=== PATIENT | female | born 1995 | race Two or more races ===

== ENCOUNTER 2020-08-18 13:07 | Emergency (ER) | payer BC ==
[~2020-08-18] VITALS: Ht 157.5 cm; Wt 63.0 kg
[2020-08-18 13:42] VITALS: BP 148/80
--- NOTE | 2020-08-18 14:09 | RAD ---
Left elbow 3 views, left forearm 2 views. HISTORY: Pain after a fall Left elbow 3 views were taken the left elbow. There is a contraceptive device in the soft tissues of the forearm medially. There is no fracture at the elbow. Fat pads at the elbow are not displaced. Left forearm 2 views were taken of the left forearm. There is not evidence of an acute fracture or osseous abnorma lity. IMPRESSION: 1. No fracture noted at the left elbow. 2. No fracture noted in the left forearm Electronically signed by: Wang Lisa MD (08/18/2020 2:07 PM) [facility]
[2020-08-18] MEDS ORDERED: NAPR-514 PO (14:26)
--- NOTE | 2020-08-18 14:26 | PHYS DOC ---
Past Medical History Past Medical History: No Pertinent History Past Surgical History: No Surgical History Smoking Status: Never Smoker Alcohol Use: None General Adult EDM: Chief Complaint: UPPER EXTREMITY PAIN HPI: HPI: Patient is a 24 year old female no significant medical history presenting to the ED today complaining of a sharp10 out of 10 left proximal forearm pain that began at 9 AM after she fell down 7 steps. Patient denies any loss of consciousness. Denies any head, neck mid or low back pain. Denies any hematuria. She states she hit her left forearm on the staircase. States the pain is worse on range of motion. Denies anything specifically relieving the pain. Review of Systems: Review of Systems: Constitutional: Denies fever or chills. [] : Denies dysuria. [] Musculoskeletal: Reports left forearm pain Integument: Denies rash. [] Neurologic: Denies headache, focal weakness or sensory changes. [] Psychiatric: Denies depression or anxiety. [] Heart Score: Risk Factors: Risk Factors: DM, Current or recent (<one month) smoker, HTN, HLP, family history of CAD, obesity. Risk Scores: Score 0 - 3: 2.5% MACE over next 6 weeks - Discharge Home Score 4 - 6: 20.3% MACE over next 6 weeks - Admit for Clinical Observation Score 7 - 10: 72.7% MACE over next 6 weeks - Early Invasive Strategies Physical Exam: PE: Constitutional: Well developed, well nourished, no acute distress, non-toxic appearance. [] Skin: Warm, dry, no erythema, no rash. [] Back: No tenderness, no CVA tenderness. [] Extremities: Left lateral proximal forearm with mild soft tissue swelling and bruising. Full range of motion to the left forearm including plantarflexion and dorsiflexion. +2 left radial pulse. Adequate radial, medial, ulnar sensation to the left upper extremity. Cap refill less than 2 seconds in left fingers. Neurologic: Alert and oriented X 3, normal motor function, normal sensory function, no focal deficits noted. [] Psychologic: Affect normal, judgement normal, mood normal. [] Current Patient Data: Vital Signs: Vital Signs Date Time Temp Pulse Resp B/P (MAP) Pulse Ox O2 Delivery O2 Flow Rate FiO2 08/18/20 13:42 98.8 61 16 148/80 (102) 100 98.8 EKG: EKG: [] Radiology/Procedures: Radiology/Procedures: []PROCEDURE: FOREARM LEFT Left elbow 3 views, left forearm 2 views. HISTORY: Pain after a fall Left elbow 3 views were taken the left elbow. There is a contraceptive device in the soft tissues of the forearm medially. There is no fracture at the elbow. Fat pads at the elbow are not displaced. Left forearm 2 views were taken of the left forearm. There is not evidence of an acute fra cture or osseous abnormality. IMPRESSION: 1. No fracture noted at the left elbow. 2. No fracture noted in the left forearm Electronically signed by: Wang Shirley MD (08/18/2020 2:07 PM) [facility] DICTATED and SIGNED BY: WANG SHIRLEY MD DATE: 08/18/20 [id number] 0 Course & Med Decision Making: Course & Med Decision Making Pertinent Labs and Imaging studies reviewed. (See chart for details) This is a 24-year-old female patient presented to the ED today with left proximal forearm pain that began after she fell down 7 steps. Left forearm and left elbow x-rays are negative for any acute findings. Robert bandage applied to the left forearm by me, neurovascular exam is intact. Ice elevation encouraged. Naproxen for pain. Dragon Disclaimer: Dragon Disclaimer: This electronic medical record was generated, in whole or in part, using a voice recognition dictation system. Departure Departure Impression: Primary Impression: Fall down steps Qualified Codes: W10.8XXA - Fall (on) (from) other stairs and steps, initial encounter Additional Impression: Contusion of left forearm Qualified Codes: S50.12XA - Contusion of left forearm, initial encounter Disposition: 01 DC HOME SELF CARE/HOMELESS Condition: STABLE Referrals: UNKNOWN PCP NAME (PCP) KAYDEN KAPLAN II, MD follow up in 1-2 weeks Patient Instructions: Contusion, [id number], Fall Prevention and Home Safety Additional Instructions: You were evaluated in the emergency room for left forearm pain. Your left forearm and left elbow x-rays are negative for any acute findings. You likely have a contusion to the left forearm. Try to ice and elevate the extremity. Wear the Robert bandage as tolerated. Follow-up with the provided orthopedic doctor or your own doctor in 1 to 2 weeks as needed Scripts Naproxen (NAPROXEN) 500 Mg Tablet 1 TAB PO BID PRN for PAIN, #30 TAB 0 Refills Prov: KERA YI APRN 08/18/20 KERA YI APRN Aug 18, 2020 14:26
== END 2020-08-18 14:30 | disposition home or self-care (01) ==
LOC: ER 13:07
DX: S50.12XA Contusion of left forearm, initial encounter (principal); W10.8XXA Fall (on) (from) other stairs and steps, initial encounter; Y93.89 Activity, other specified; Y92.89 Other specified places as the place of occurrence of the external cause; Y99.9 Unspecified external cause status
CPT/HCPCS: 73080; 73090; 99284

== ENCOUNTER 2021-03-22 13:48 | Emergency (ER) | payer BC ==
[~2021-03-22] VITALS: Ht 154.9 cm; Wt 75.1 kg
[~2021-03-22 13:48] MED LIST: NAPR-514 PO
[2021-03-22] MEDS ORDERED: TETRACAINE 0.5% OPHTH SOLUTION 4ML BOTTLE. OD ONE (14:30)
[2021-03-22] MEDS ORDERED: FLUORESCEIN OPHTH TEST STRIP. OD ONE (14:30)
--- NOTE | 2021-03-22 14:52 | PHYS DOC ---
Past Medical History Past Medical History: No Pertinent History Past Surgical History: No Surgical History Smoking Status: Never Smoker Alcohol Use: None General Adult EDM: Chief Complaint: EYE PROBLEMS HPI: HPI: Patient is a 25 year old female without pertinent past medical history who presents with a red and painful eye. States that she was playing with her children when she was hit in the eye on accident last night about 7 PM. Was slightly painful when she went to bed. When she woke up today she had red/bloody conjunctivae so came in to the emergency department. No vision loss. Review of Systems: Review of Systems: Constitutional: Denies fever or chills. [] Eyes: Right eye pain and redness. [] HENT: Denies nasal congestion or sore throat. [] Respiratory: Denies cough or shortness of breath. [] Cardiovascular: Denies chest pain or edema. [] GI: Denies abdominal pain, nausea, vomiting, bloody stools or diarrhea. [] : Denies dysuria. [] Musculoskeletal: Denies back pain or joint pain. [] Integument: Denies rash. [] Neurologic: Denies headache, focal weakness or sensory changes. [] Endocrine: Denies polyuria or polydipsia. [] Lymphatic: Denies swollen glands. [] Psychiatric: Denies depression or anxiety. [] Heart Score: C/O Chest Pain: N/A Risk Factors: Risk Factors: DM, Current or recent (<one month) smoker, HTN, HLP, family hi story of CAD, obesity. Risk Scores: Score 0 - 3: 2.5% MACE over next 6 weeks - Discharge Home Score 4 - 6: 20.3% MACE over next 6 weeks - Admit for Clinical Observation Score 7 - 10: 72.7% MACE over next 6 weeks - Early Invasive Strategies Current Medications: Current Medications Medications (Trade) Dose Ordered Sig/Juliana Start Time Stop Time Status Last Admin Dose Admin Fluorescein Sodium (Ful-Rosa) 1 strip 1X ONCE 03/22/21 14:30 03/22/21 14:31 DC Tetracaine HCl (Tetracaine) 1 drop 1X ONCE 03/22/21 14:30 03/22/21 14:31 DC Allergies: Allergies: Allergies Coded Allergies Type Severity Reaction Last Updated Verified No Known Drug Allergies 03/22/21 No Physical Exam: PE: Constitutional: Well developed, well nourished, no acute distress, non-toxic appearance. [] HENT: Normocephalic, atraumatic, bilateral external ears normal, oropharynx moist, no oral exudates, nose normal. [] Eyes: Vision grossly intact. Pupils equal, reactive to light, EOMs intact in all directions. No evidence of hyphema. There is subconjunctival hemorrhage on the lateral right eye. Fluorescein exam negative. No evidence of Manish sign/open globe. No evidence of facial bruising or instability [] Neck: Normal range of motion, no tenderness, supple, no stridor. [] Cardiovascular:Heart rate regular rhythm, no murmur [] Lungs & Thorax: Normal respiratory effort. Normal chest excursion. Abdomen: Bowel sounds normal, soft, no tenderness, no masses, no pulsatile masses. [] Skin: Warm, dry, no erythema, no rash. [] Back: No tenderness, no CVA tenderness. [] Extremities: No tenderness, no cyanosis, no clubbing, ROM intact, no edema. [] Neurologic: Alert and oriented X 3, normal motor function, normal sensory function, no focal deficits noted. [] Psychologic: Affect normal, judgement normal, mood normal. [] Current Patient Data: Vital Signs: Vital Signs Date Time Temp Pulse Resp B/P (MAP) Pulse Ox O2 Delivery O2 Flow Rate FiO2 03/22/21 14:15 98.9 82 16 126/91 (103) 96 Room Air 98.9 EKG: EKG: [] Radiology/Procedures: Radiology/Procedures: [] Course & Med Decision Making: Course & Med Decision Making Pertinent Labs and Imaging studies reviewed. (See chart for details) Patient is 25-year-old female who presents with a subconjunctival hemorrhage and hit in the eye by her child last night. Vision intact. No evidence of hyphema or traumatic iritis. No evidence of facial trauma, low concern for retrobulbar hematoma. No evidence of open globe. No evidence of corneal abrasion. This looks to be a simple Subconjunctival hemorrhage that can be managed expectantly. [id number] Naveed Disclaimer: Naveed Disclaimer: This electronic medical record was generated, in whole or in part, using a voice recognition dictation system. Departure Departure Impression: Primary Impression: Subconjunctival hemorrhage of right eye Disposition: HOME / SELF CARE / HOMELESS Condition: STABLE Referrals: UNKNOWN PCP NAME (PCP) Patient Instructions: Subconjunctival Hemorrhage RAJAT RIVERA MD Mar 22, 2021 14:52
[2021-03-22 15:42] VITALS: BP 137/82
== END 2021-03-22 15:42 | disposition home or self-care (01) ==
LOC: ER 13:48
DX: H11.31 Conjunctival hemorrhage, right eye (principal)
CPT/HCPCS: 99283

== ENCOUNTER 2021-11-26 23:54 | Emergency (ER) | payer BC ==
[~2021-11-26] VITALS: Ht 160 cm; Wt 65.9 kg
[2021-11-27 00:40] VITALS: BP 150/95
[2021-11-27] MEDS ORDERED: DIPHTH,PERTUSS(ACELL),TET TOX 0.5 ML DISP.SYRIN. VAX IM ONE (01:00)
[2021-11-27] MEDS ORDERED: CEPHALEXIN 250 MG CAPSULE. PO SCH (01:01)
--- NOTE | 2021-11-27 01:29 | RAD ---
XR RT TIBIA+FIBULA 11/27/2021 1:02 AM INDICATION: Trauma, pain COMPARISON: None available. TECHNIQUE: 2 views of the right tibia and fibula are provided. FINDINGS/ IMPRESSION: There is no acute fracture or dislocation. Joint spaces are maintained. Bone mineralization is within normal limits. Regional soft tissues are within normal limits. There is no soft tissue gas or osseou s erosion. No radiopaque foreign body. Electronically signed by: Hermelinda Corrigan MD (11/27/2021 1:27 AM) [facility]
[2021-11-27] MEDS ORDERED: CEPH500C PO (01:47)
--- NOTE | 2021-11-27 01:48 | PHYS DOC ---
Past Medical History Past Medical History: No Pertinent History Past Surgical History: No Surgical History Smoking Status: Never Smoker Alcohol Use: None General Adult EDM: Chief Complaint: MECHANICAL FALL HPI: HPI: Patient is a 26 year old female that presents with right leg pain. Onset yesterday. She was walking up the steps when she tripped forward and hit the right anterior lewis onto one of the steps. Denies any falls or head injuries. Since then the injured area has become reddened and more painful. She has been scratching it. No other significant past medical history. Denies any history of diabetes. No vomiting or diarrhea Review of Systems: Review of Systems: Constitutional: Denies fever or chills. [] Eyes: Denies change in visual acuity. [] HENT: Denies nasal congestion or sore throat. [] Respiratory: Denies cough or shortness of breath. [] Cardiovascular: Denies chest pain or edema. [] GI: Denies abdominal pain, nausea, vomiting, bloody stools or diarrhea. [] : Denies dysuria. [] Musculoskeletal: Right tib-fib pain Integument: Denies rash. [] Neurologic: Denies headache, focal weakness or sensory changes. [] Endocrine: Denies polyuria or polydipsia. [] Lymphatic: Denies swollen glands. [] Psychiatric: Denies depression or anxiety. [] Heart Score: C/O Chest Pain: No Risk Factors: Risk Factors: DM, Current or recent (<one month) smoker, HTN, HLP, family history of CAD, obesity. Risk Scores: Score 0 - 3: 2.5% MACE over next 6 weeks - Discharge Home Score 4 - 6: 20.3% MACE over next 6 weeks - Admit for Clinical Observation Score 7 - 10: 72.7% MACE over next 6 weeks - Early Invasive Strategies Current Medications: Current Medications Medications (Trade) Dose Ordered Sig/Juliana Start Time Stop Time Status Last Admin Dose Admin Cephalexin HCl (Keflex) 500 mg BID 11/27/21 01:01 11/27/21 01:12 500 MG Diphtheria/ Tetanus/Acell Pertussis (Boostrix) 0.5 ml ONCE ONCE 11/27/21 01:00 11/27/21 01:01 DC 11/27/21 01:14 0.5 ML Allergies: Allergies: Allergies Coded Allergies Type Severity Reaction Last Updated Verified No Known Drug Allergies 03/22/21 No Physical Exam: PE: Constitutional: Well developed, well nourished, no acute distress, non-toxic appearance. [] HENT: Normocephalic, atraumatic, bilateral external ears normal, oropharynx moist, no oral exudates, nose normal. [] Eyes: PERRLA, EOMI, conjunctiva normal, no discharge. [] Neck: Normal range of motion, no tenderness, supple, no stridor. [] Cardiovascular:Heart rate regular rhythm, no murmur [] Lungs & Thorax: Bilateral breath sounds clear to auscultation [] Abdomen: Bowel sounds normal, soft, no tenderness, no masses, no pulsatile masses. [] Skin: Skin over the right middle tib-fib anteriorly shows a healing scab with surrounding erythema and slight induration measuring approximately 3 to 4 inches in diameter Back: No tenderness, no CVA tenderness. [] Extremities: No tenderness, no cyanosis, no clubbing, ROM intact, no edema. [] Neurologic: Alert and oriented X 3, normal motor function, normal sensory function, no focal deficits noted. [] Psychologic: Affect normal, judgement normal, mood normal. [] Current Patient Data: Vital Signs: Vital Signs Date Time Temp Pulse Resp B/P (MAP) Pulse Ox O2 Delivery O2 Flow Rate FiO2 11/27/21 00:40 98.6 90 16 150/95 (113) 99 Room Air 98.6 EKG: EKG: [] Radiology/Procedures: Radiology/Procedures: [] Course & Med Decision Making: Course & Med Decision Making Pertinent Labs and Imaging studies reviewed. (See chart for details) Patient has obvious small amount of cellulitis on examination. Will give first dose of p.o. antibiotics in ED and discharge. Tetanus shot given as well. X- rays are unremarkable. Dragon Disclaimer: Ultriva Disclaimer: This electronic medical record was generated, in whole or in part, using a voice recognition dictation system. Departure Departure Impression: Primary Impression: Cellulitis of right lower extremity Disposition: ADMITTED INPATIENT Condition: STABLE Referrals: UNKNOWN PCP NAME (PCP) Patient Instructions: Cellulitis, [id number] Scripts Cephalexin (KEFLEX) 500 Mg Capsule 500 MG PO QID for 7 Days, #28 CAP Prov: HARRIS ANG MD 11/27/21 HARRIS ANG MD November 27, 2021 01:48
== END 2021-11-27 01:50 | disposition admitted as inpatient to this hospital (09) ==
LOC: ER 23:54
DX: L03.115 Cellulitis of right lower limb (principal)
CPT/HCPCS: 73590; 90471; 90715; 99283